=== PATIENT | female | born 1975 | race Caucasian/White ===

== ENCOUNTER → 2017-06-25 16:22 | Outpatient (CLI) | payer BC ==
[2014-04-19 00:55] VITALS: BMI 34.5
[~2017-06-25 16:22] MED LIST: COLACE100 MG PO; CYCLOBENZAPRINE10 MG PO; IMODIUM2 MG PO; LEXAPRO20 MG PO; METAMUCIL FIB1 WAFER PO; PHENERGAN25 M1 PO; POTASSIUM CHLO10 ME1 PO; RELPAX20 MG PO; TYLENOL W/CODEI1 TAB PO; WELLBUTRIN100 MG PO
== END | disposition home or self-care (01) ==
LOC: D.MRI 16:22
DX: G43.109 Migraine with aura, not intractable, without status migrainosus (principal)

== ENCOUNTER → 2017-09-18 21:02 | Outpatient (CLI) | payer BC ==
[2014-04-19 00:55] VITALS: BMI 34.5
== END | disposition home or self-care (01) ==
LOC: D.MAMMO 09-02 16:15
DX: Z12.31 Encounter for screening mammogram for malignant neoplasm of breast (principal)